=== PATIENT | male | born 1945 | race Caucasian/White ===

== ENCOUNTER 2017-12-19 06:28 | Day surgery (SDC) | payer MEDICARE, SELFPAY ==
[2017-12-19] VITALS (7 sets, daily range): BP systolic 116–129; BP diastolic 70–79; PULSE 53–63; RESP 16–18; TEMP 36.3–36.6; O2SAT 98–99; BMI 29.8
--- NOTE | 2017-12-19 08:27 | HP.PCM_ITS ---
Problem List (1) Encounter for screening for malignant neoplasm of colon Status: Acute History of Present Illness Date of Admission: 12/19/17 The patient is a 72 year old M who presents for screening colonoscopy. Past Medical History Allergies No Known Allergies Allergy (Verified 12/16/17 10:33) Home Medications: Ambulatory Orders Medication Instructions Recorded Buspirone HCl 15 mg PO BID 12/16/17 Essential Vitamin 1 tab PO DAILY 12/16/17 Gluc Mccray/Chondro Mccray A/Vit C/Mn 3 each PO DAILY 12/16/17 [Glucosamine-Chondroitin Cap] Green Tea Assumption Extract [Green Tea 150 mg PO QHS 12/16/17 Extract] Hydrochlorothiazide [Hctz] 25 mg PO DAILY 12/16/17 Ibuprofen/Diphenhydramine Cit 2 each PO TID 12/16/17 [Advil Pm Caplet] Immune Factors 2 tab PO QHS 12/16/17 L.acidoph,Paracasei, B.lactis 1 each PO QHS 12/16/17 [Probiotic] Levothyroxine Sodium 100 mcg PO QHS 12/16/17 Liver/Brain Benefit 2 tab PO QHS 12/16/17 Losartan Potassium [Cozaar] 100 mg PO DAILY 12/16/17 Magnesium Oxide [Magnesium] 400 mg PO QHS 12/16/17 Milk Thistle/Nac/Dandel/Turmer 2 each PO QHS 12/16/17 [Liver Complex Tablet] [employer] [place]-3 Fatty Acids/Fish Oil 2 each PO DAILY 12/16/17 [[employer] 3 1,000 mg Softgel] Ubidecarenone [Coenzyme Q-10] 400 mg PO DAILY 12/16/17 Venlafaxine HCl [Venlafaxine HCl 300 mg PO DAILY 12/16/17 ER] Smoking Status: Never smoker - *Family History Maternal History Items: No pertinent history Review of Systems HEENT: Reports: Difficulty Swallowing Cardiovascular: Denies: Chest Pain, Chest Pressure, Chest Tightness, Palpitations Respiratory: Denies: Cough, Hemoptysis, Shortness of breath at rest, Shortness of breath upon exertion, Wheezing Gastrointestinal: Denies: Abdominal Pain, Constipation, Diarrhea, Hematemesis, Nausea, Melena, Vomiting VTE Information - Inpt Only VTE Present on Admission: No VTE Mechan Device Prophylaxis: None VTE Pharm Prophylaxis ordered?: No Reason prophylaxis not ordered:: Treatment Not Indicated Patient Problems: Active and Suspected Problems Encounter for screening for malignant neoplasm of colon (Acute) - Physical Exam Lungs: Clear to auscultation Cardiovascular: Regular rate, Regular Rhythm, No murmurs Abdomen: Bowel Sounds Present, Soft, Non Tender, Non-Distended Vital Signs Temp Pulse Resp BP Pulse Ox 97.8 F 63 18 122/78 H 99 12/19/17 07:15 12/19/17 07:15 12/19/17 07:15 12/19/17 07:15 12/19/17 07:15 Oxygen Delivery Method Room Air Weight: 207 lb 14.334 oz Body Mass Index (BMI) 29.8 Assessment/Plan Active and Suspected Problems Encounter for screening for malignant neoplasm of colon (Acute) Plan: I will perform a colonoscopy on the patient. Risk benefits have been reviewed in great detail with the patient the patient agrees to proceed.
--- NOTE | 2017-12-19 08:27 | PCM.OPRPT ---
Problem List (1) Encounter for screening for malignant neoplasm of colon Status: Acute Report of Operation Date of Procedure: 12/19/17 Pre-Operative Diagnosis: Z 12.11 screening colonoscopy Post-Operative Diagnosis: Same Surgery/Procedure Performed:: 88146 colonoscopy Type of Anesthesia:: MAC Anesthesiologist: Guille Archer Description of Procedure: Patient was brought into the endoscopy suite. Placed in the left lateral decubitus position. Was given graded anesthesia. The scope was inserted into the rectum and directed through the sigmoid colon, descending colon, transverse colon, ascending colon, to the cecum. Operative findings: 1. Cecum: Normal appearance no mass lesions. 2. Ascending colon: Normal appearance no mass lesions. 3. Transverse colon: Normal appearance no mass lesions 4. Descending colon: Normal appearance no mass lesions scattered diverticular disease. 5. Sigmoid colon: Normal appearance no mass lesions scattered diverticular disease. 6. Rectum: Normal appearance no mass lesions scope was withdrawn digital rectal exam was performed showing no masses within the anus. Patient tolerated the procedure well. Patient will need another colonoscopy in 10 years - Admit VTE Documentation VTE Present on Admission: No VTE Mechan Device Prophylaxis: None VTE Pharm Prophylaxis ordered?: No Reason prophylaxis not ordered:: Treatment Not Indicated
--- NOTE | 2017-12-19 11:21 | SUR.PHASEII ---
CASE MANAGEMENT CALLED BACK FORM MESSAGE I LEFT EARLIER ABOUT POSS FOLLOW THROUGH. PATIENT STATED HE JUST LOST HIS LIFE, HAD SOME FAMILY ISSUES AND WAS ALL ALONE. CASE MANAGEMENT STATED THEY WOULD CONTACT PT
== END 2017-12-19 09:13 | disposition home or self-care (01) ==
LOC: EN 06:30 → AC 06:32
PROVIDERS: Family Provider Family Medicine; PCP Family Medicine; Visit Provider Surgery
PROC: 0DJD8ZZ Inspection of Lower Intestinal Tract, Via Natural or Artificial Opening Endoscopic (ICD-10-PCS; CPT 45378; principal; 2017-12-19 07:55)
DX: Z12.11 Encounter for screening for malignant neoplasm of colon (principal); R13.10 Dysphagia, unspecified; I10 Essential (primary) hypertension; M54.9 Dorsalgia, unspecified; G25.81 Restless legs syndrome; K21.9 Gastro-esophageal reflux disease without esophagitis; Z87.19 Personal history of other diseases of the digestive system; F41.9 Anxiety disorder, unspecified; F32.9 Major depressive disorder, single episode, unspecified; E06.9 Thyroiditis, unspecified; Z79.899 Other long term (current) drug therapy
CPT/HCPCS: G0121; J7120; J1610

== ENCOUNTER → 2023-05-09 | Outpatient (CLI) | payer MEDICARE, SELFPAY ==
[2023-05-09 15:39] LABS: ALB/GLOB Ratio 0.9 RATIO (0.9-2.4); AST(SGOT) 13 U/L (15-37); Alanine Aminotransfer ALT/SGPT 12 U/L (16-61); Albumin, Serum 3.7 g/dL (3.2-5.0); Alkaline Phosphatase 91 U/L (45-117); Anion Gap 3 (5-15); BUN 25 mg/dL (7-18); BUN/Creat Ratio 20.2 RATIO (10-20); Calcium,Total 9.5 mg/dL (8.5-10.1); Chloride 109 mmol/L (98-107); Creatinine, Serum 1.24 mg/dL (0.70-1.30); EST Glomerular Filtration Rate 60 mL/min (>60); Est Glom Filt Rate - Afr Amer 73 mL/min (>60); Follicle Stimulating Hormone 11.8 mIU/mL; Globulin 3.9 g/dL (2.2-4.2); Glucose 103 mg/dL (74-106); Luteinizing Hormone 8.2 mIU/mL; Potassium 4.9 mmol/L (3.5-5.1); Protein, Total 7.6 g/dL (6.4-8.2); Sodium Level 141 mmol/L (136-145); T4 Free Direct 0.95 ng/dL (0.76-1.46)
[2023-05-13 09:08] LABS: Adrenocorticotropic Hormone 43.4 pg/mL (7.2-63.3); Insulin Like Growth Factor 96 ng/mL (45-207)
== END | disposition home or self-care (01) ==
LOC: LAB 11:51
PROVIDERS: Referring Provider Internal Medicine Endocrinology, Diabetes & Metabolism; Visit Provider Internal Medicine Endocrinology, Diabetes & Metabolism
DX: E29.1 Testicular hypofunction (principal); E03.9 Hypothyroidism, unspecified
CPT/HCPCS: 36415; 80053; 82024; 82533; 83001; 83002; 84305; 84439; 84443

== ENCOUNTER → 2023-05-19 | Outpatient (CLI) | payer MEDICARE, SELFPAY ==
[2023-05-19 18:01] LABS: Prolactin 321.9 ng/mL
== END | disposition home or self-care (01) ==
PROVIDERS: PCP Preventive Medicine Occupational Medicine; Referring Provider Internal Medicine Endocrinology, Diabetes & Metabolism; Visit Provider Internal Medicine Endocrinology, Diabetes & Metabolism
DX: E29.1 Testicular hypofunction (principal)
CPT/HCPCS: 36415; 84146

== ENCOUNTER → 2023-06-06 | Outpatient (CLI) | payer MEDICARE, SELFPAY ==
--- NOTE | 2023-06-06 17:06 | MRI_ITS ---
We are attempting to reach an attending provider to discuss findings. An addendum with communication details will be sent when the communication is complete. STUDY: MRI BRAIN WITH AND WITHOUT CONTRAST REASON FOR EXAM: Male, 78 years old. Hyperprolactinemia -- ATTN: pituitary, low testosterone per patient TECHNIQUE: Standardized multiplanar fat and water weighted pulse sequences were obtained. IV 19ML CLARISCAN was administered for the contrast portion of the examination. COMPARISON: None. FINDINGS: Mild atrophy and moderate periventricular white matter ischemic change without mass effect or restricted diffusion. . There is a small lesion in the right posterior parietal lobe demonstrating restricted diffusion of indeterminate etiology possibly representing small acute cortical infarct Normal bilateral basal ganglia. Normal thalami. There is no extra-axial fluid accumulation. Normal flow voids within the major intracranial circulation suggesting patency by spin echo criteria. Normal venous enhancement. There is no enhancing intra-axial or extra-axial abnormality. The pituitary is enlarged on the right encroaching upon the cavernous sinus., On the right side inferiorly, there is a small focal area of decreased enhancement measuring approximately 6 x 4 mm which may be consistent with microadenoma. Normal Infundibular stalk, optic chiasm and hypothalamus. Normal tectal plate and pineal gland. Normal midbrain, carrillo and medulla. Normal cerebellum. Normal basal cisterns. Normal bilateral temporal bones. Normal bilateral internal auditory canals. No demonstrated orbital abnormality, within the constraints of a routine brain study. Normal visualized paranasal sinuses. Normal calvarium and skull base. Normal visualized soft tissue structures. Normal visualized upper cervical spine. 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 Clinical correlation recommended Electronically Signed: Ad Moore MD at 20:57 EDT ,
== END | disposition home or self-care (01) ==
LOC: MRI 16:30
PROVIDERS: PCP Preventive Medicine Occupational Medicine; Referring Provider Internal Medicine Endocrinology, Diabetes & Metabolism; Visit Provider Internal Medicine Endocrinology, Diabetes & Metabolism
DX: E22.1 Hyperprolactinemia (principal)
CPT/HCPCS: 70553; A9575

== ENCOUNTER → 2023-08-26 | Outpatient (CLI) | payer MEDICARE, SELFPAY ==
[2023-08-27 06:40] LABS: PSA,Total - Annual Screen 2.85 ng/mL (0.00-4.00); Prolactin 16.2 ng/mL
[2023-08-31 14:09] LABS: Testosterone, % Free 1.15 % (1.50-4.20); Testosterone, Free 0.21 ng/dL (5.00-21.00); Testosterone, Total 18 ng/dL (264-916)
== END | disposition home or self-care (01) ==
LOC: LAB 11:03
PROVIDERS: PCP Preventive Medicine Occupational Medicine; Referring Provider Internal Medicine Endocrinology, Diabetes & Metabolism; Visit Provider Internal Medicine Endocrinology, Diabetes & Metabolism
DX: R97.20 Elevated prostate specific antigen [PSA] (principal); E22.1 Hyperprolactinemia; E29.1 Testicular hypofunction
CPT/HCPCS: 36415; 84146; 84153; 84402; 84403; G0103

== ENCOUNTER → 2024-08-20 | Outpatient (CLI) | payer MEDICARE, SELFPAY ==
[2024-08-21 16:10] LABS: PROLACTIN 0.6 ng/mL (3.6-25.2)
== END | disposition home or self-care (01) ==
PROVIDERS: PCP Preventive Medicine Occupational Medicine; Referring Provider Internal Medicine Endocrinology, Diabetes & Metabolism; Visit Provider Internal Medicine Endocrinology, Diabetes & Metabolism
DX: E22.1 Hyperprolactinemia (principal)
CPT/HCPCS: 36415; 84146